=== PATIENT | male | born 1980 | race Two or more races ===

== ENCOUNTER → 2018-02-14 | Outpatient (CLI) | payer OTHER ==
[~2018-02-14] MED LIST: GADOBUTROL 7.5 MMOL/7.5 ML PFS ONE; MULT-334 PO
== END | disposition home or self-care (01) ==
LOC: CFH 09:05
PROVIDERS: ATTEND Nurse Practitioner Family
DX: R51 Headache (principal); H53.9 Unspecified visual disturbance; Z82.0 Family history of epilepsy and other diseases of the nervous system
CPT/HCPCS: 70553; 72156; A9585